=== PATIENT | female | born 1975 | race African-American/Black ===

== ENCOUNTER 2018-01-14 12:11 | Emergency (ER) | payer MEDICAID ==
[~2018-01-14] VITALS: Ht 160 cm; Wt 58.0 kg
[2018-01-14] MEDS ORDERED: ACETAMINOPHEN WITH CODEINE 300/30MG TABLET PO STA (13:11)
[2018-01-14 13:48] LABS: BASOPHILS % 0.7 % (0.0-2.0); EOSINOPHILS % 1.4 % (0.0-5.0); HEMATOCRIT. 34.3 % (36.0-48.0); HEMOGLOBIN. 11.4 g/dL (12.0-16.0); LYMPHOCYTES % 22.8 % (20.0-50.0); MEAN CORPUSCULAR HEMOGLOBIN 31.3 pg (28.0-32.0); MEAN PLATELET VOLUME 8.4 fl (7.4-10.4); MONOCYTES % 6.1 % (2.0-8.0); PLATELET 229 x1000/uL (130-400); RED BLOOD CELL COUNT 3.65 mill/uL (4.2-5.4); RED CELL DISTRIBUTION WIDTH 13.5 % (11.6-14.6)
[2018-01-14 13:55] LABS: PROTHROMBIN TIME 10.1 sec (9.4-11.6)
[2018-01-14 14:02] LABS: CHLORIDE 106 mEq/L (98-107)
[2018-01-14] MEDS ORDERED: KETOROLAC 60MG/2ML VIAL IM ONE (15:00)
[2018-01-14] MEDS ORDERED: MAGNESIUM/ALUMINUM HYDROXIDE/SIMETHICONE 30ML UDC PO ONE (15:00)
[2018-01-14 15:01] VITALS: BP 126/72
== END 2018-01-14 15:02 | disposition home or self-care (01) ==
LOC: ER 13:11
DX: R07.89 Other chest pain (principal); F17.210 Nicotine dependence, cigarettes, uncomplicated; F12.90 Cannabis use, unspecified, uncomplicated
CPT/HCPCS: 36415; 71045; 80053; 85025; 85610; 93005; 99285